=== PATIENT | male | born 1960 | race Caucasian/White ===

== ENCOUNTER 2018-12-31 13:07 | Day surgery (SDC) | payer OTHER ==
--- NOTE | 2018-12-31 13:15 | PDHPUP ---
History & Physical Update H&P update statement: This history and physical update is based on an assessment of the patient which was completed after admission or registration (within 24 hours), but prior to the surgery/procedure. H&P update: H&P reviewed & patient examined, no change in patient's condition since H&P completed
--- NOTE | 2018-12-31 13:23 | POSTOPPROG ---
Post Op Note Date of Operation: 12/31/18 Surgeon: Markos Phillips Building Economist: Ruby Hankins Anesthesiologist: Abbe Roberto Anesthesia: GET(General Endotracheal) Pre-op Diagnosis: recurrent RIH Post-op Diagnosis: same Procedure: robotic assisted recurrent RIH repair c mesh Findings: indirect sac, adhesions to epigastric vessels. Inf/Abcess present in the surg proc area at time of surgery?: No EBL: Minimal Complications: none
[2018-12-31] MEDS ORDERED: ceFAZolin 2 GM/DEXTROSE 100 ML IV ONE (13:55)
[2018-12-31] MEDS ORDERED: LR 1,000 ML IV ONE (13:55)
[2018-12-31] MEDS ORDERED: BUPIVACAINE 0.5% 30 ML SDV ONE (14:44)
[2018-12-31] MEDS ORDERED: MIDAZOLAM 2 MG/2 ML VIAL IVP ONE (15:24)
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
[2018-12-31] MEDS ORDERED: PROPOFOL 200 MG/20 ML VIAL ONE (15:39)
[2018-12-31] MEDS ORDERED: fentaNYL 100 MCG/2 ML INJ ONE ×2 (15:39)
[2018-12-31] MEDS ORDERED: ROCURONIUM 50 MG/5 ML VIAL ONE ×2 (15:40→16:10)
[2018-12-31] MEDS ORDERED: ONDANSETRON 4 MG/2 ML VIAL ONE (15:40)
[2018-12-31] MEDS ORDERED: DEXAMETHASONE 4 MG/ML VIAL ONE (15:40)
[2018-12-31] MEDS ORDERED: LIDOCAINE 2% 100 MG/5 ML SYR ONE (15:40)
[2018-12-31] MEDS ORDERED: KETOROLAC 30 MG/1 ML SDV ONE (15:40)
[2018-12-31] MEDS ORDERED: NALOXONE HCL 0.4 MG/ML INJ IVP PRN (16:51)
[2018-12-31] MEDS ORDERED: fentaNYL 100 MCG/2 ML INJ IVP PRN (16:51)
[2018-12-31] MEDS ORDERED: ONDANSETRON 4 MG/2 ML VIAL IVP PRN (16:51)
[2018-12-31] MEDS ORDERED: ALBUTEROL 3 ML DEYVIAL IH PRN (16:51)
[2018-12-31] MEDS ORDERED: MEPERIDINE 25 MG/0.5 ML AMP IVP PRN (16:51)
[2018-12-31] MEDS ORDERED: SUGAMMADEX SODIUM 200 MG/2 ML VIAL IVP ONE (17:23)
--- NOTE | 2018-12-31 17:42 | POSTANESTH ---
Post Anesthetic Evaluation Cardiovascular Status: Similar to Pre-Op Cond Respiratory Status: Similar to Pre-op Cond. Level of Consciousness/Mental Status: Mildly Sleepy, Arousable Pain Control: Adequate, Prn Tx Ordered Nausea/Vomiting Control: Adequate, Prn Tx Ordered Complications Possibly Related to Anesthesia: None Noted
[2018-12-31 20:05] VITALS: BP 120/79
--- NOTE | 2019-01-02 05:50 | GOP ---
[f rep st] OPERATIVE REPORT DATE OF OPERATION: 12/31/2018 SURGEON: Markos Phillips MD ENVIRONMENTAL AUDITOR: LUKE Trivedi. ANESTHESIOLOGIST: Dr. Roberto. PREOPERATIVE DIAGNOSIS: Recurrent right inguinal hernia. POSTOPERATIVE DIAGNOSIS: Recurrent right inguinal hernia. PROCEDURE PERFORMED: Robotic assisted laparoscopic right inguinal hernia repair. FINDINGS: The patient was found to have no evidence of any recurrent left inguinal hernia. He did h ave adhesions to the previous left inguinal hernia mesh area. He had an indirect right inguinal henrry ia sac. ESTIMATED BLOOD LOSS: Negligible. DESCRIPTION OF PROCEDURE: The patient was taken to the operating room where he received a satisfacto ry general endotracheal anesthesia by Dr. Roberto. He was placed in the supine position in a slight bit of Trendelenburg. A short incision was made above the umbilicus. A Veress needle inserted. Pn eumoperitoneum was established. Trocar was introduced. Good visualization was obtained. Two other trocars were placed laterally in the upper abdomen under direct vision. The instrument was introduce d and this was done after the da Rama robot had been docked to the camera port and area the targeted . After the targeting was complete, the remaining 2 trocars were docked to the . Instrume nts were introduced and the right inguinal hernia was identified. There was no evidence of left ingu inal hernia. Peritoneum over the right inguinal hernia defect was incised with electrocautery making a curving incision some 5 cm above the hernia defect. This peritoneum division extended medially do wn the umbilical ligament. The flap was dissected down to the Munir ligament and the pubis. This w as well visualized. Dissection extended laterally well out away from the internal ring. The dissect ion extended then down to the cord structures. The epigastric vessels were stuck to the peritoneum a nd had to be carefully dissected away. This finally allowed excellent exposure of the cord in the in direct sac. The indirect sac was then dissected free from the cord structures and completely reduced . The lipoma of the cord was dissected free and reduced. After adequate exposure was achieved, a Pr o Elevator Dispatcher mesh was placed in the floor of the inguinal canal. It was positioned to overlap the pubis an d Munir ligament. It was positioned in place. The peritoneal defect was then closed with a running 2-0 V-Loc suture, closing the peritoneum completely around the mesh and incorporating the mesh in th e stitch which were further secured. Hemostasis was assured. Trocars were then removed under direct vision. Pneumoperitoneum was released. Trocar sites were closed with 4-0 Monocryl subcuticular sti tch for the skin and all layers infiltrated with Marcaine. He tolerated the procedure well. Blood l oss COMPLICATIONS: None. /[id number]/MODL
== END 2018-12-31 20:50 | disposition home or self-care (01) ==
LOC: FSGY 13:07
PROVIDERS: ATTEND Surgery
DX: K40.91 Unilateral inguinal hernia, without obstruction or gangrene, recurrent (principal); G47.33 Obstructive sleep apnea (adult) (pediatric); N52.9 Male erectile dysfunction, unspecified; Z86.73 Personal history of transient ischemic attack (TIA), and cerebral infarction without residual deficits
CPT/HCPCS: C1781; J0690; J1100; J1885; J2001; J2250; J2405; J2704; J3010